=== PATIENT | female | born 1970 | race Caucasian/White ===

== ENCOUNTER 2018-01-03 09:40 | Observation (INO) ==
--- NOTE | 2018-01-03 10:22 | ED ---
HPI General Chief Complaint: Chest Pain Stated Complaint: CHEST PAIN Time Seen by Provider: 01/03/18 10:12 History of Present Illness HPI narrative: The patient was seen and examined in the presence of the nurse. This patient complains of chest pain. Is located in her left upper chest. Started yesterday. She has had it before and has periodically gotten at over the last month or 2. She has not mentioned it to her doctor or got any evaluation for it. [place] like an aching pressure. She is a hypertensive diabetic, Accu-Chek 221. No history of cardiac disease per her report. She also has some chronic upper back discomfort. No recent injury or neurologic complaint severity is moderate. No alleviating factors. No exacerbating factors. Paramedics brought her aunt and gave HER 2 sublingual nitro in route which she says helped her chest pain. Related Data Home Medications Medication Instructions Recorded Confirmed glimepiride 1 mg PO QAM 01/03/18 01/03/18 levothyroxine 25 mcg PO DAILY 01/03/18 01/03/18 metformin 500 mg PO BID 01/03/18 01/03/18 Allergies Allergy/AdvReac Type Severity Reaction Status Date / Time methylergonovine Allergy Arrhythmias Verified 01/03/18 09:50 [From Methergine] Review of Systems ROS: all other systems reviewed are negative [facility] Medical History Medical History Diabetes (Acute) H/O: hysterectomy (Acute) Hypertension (Acute) Surgical History Surgical History Hx of appendectomy (Acute) Social History Social History Substance History: No History of Abuse Smoking Status: Unknown if ever smoked How Often Do You Have a Drink Containing Alcohol: Never Immunization History Tetanus Immunization: >5 Years Hx Influenza Vaccine This Season: No Exam Narrative Exam Narrative: GENERAL: Well-nourished, well-developed patient in no apparent distress. SKIN: Focused skin assessment reveals no rash and nodules. Skin is Warm and dry. HEAD: Atraumatic. Normocephalic. EYES: Pupils equal and round. No scleral icterus. No injection or drainage. ENT: No nasal bleeding or discharge. Mucous membranes pink and moist. NECK: Trachea midline. No JVD. CARDIOVASCULAR: Regular rate and rhythm. No murmur appreciated. RESPIRATORY: No accessory muscle use. Clear to auscultation. Breath sounds equal bilaterally. GASTROINTESTINAL: Abdomen soft, non-tender, nondistended. Hepatic and splenic margins not palpable. MUSCULOSKELETAL: No obvious deformities. No clubbing. No cyanosis. No edema. NEUROLOGICAL: Awake and alert. No obvious cranial nerve deficits. Motor grossly within normal limits. Normal speech. PSYCHIATRIC: Appropriate mood and affect; insight and judgment normal. Course Initial Documented Vital Signs Temperature 98.2 F 01/03/18 09:53 Pulse Rate 99 H 01/03/18 09:53 Respiratory Rate 20 01/03/18 09:53 Blood Pressure 173/89 H 01/03/18 09:53 Pulse Oximetry 98 01/03/18 09:53 Last Documented Vital Signs Temperature 98.2 F 01/03/18 09:53 Pulse Rate 80 01/03/18 11:47 Respiratory Rate 18 01/03/18 11:47 Blood Pressure 153/73 H 01/03/18 11:47 Pulse Oximetry 97 01/03/18 11:47 Medical Decision Making MDM Narrative Medical decision making narrative: IV placed and labs sent. I gave her aspirin. EKG does not show STEMI changes Chest x-ray is normal and cardiac enzymes negative. She is a bit hyperglycemic and a bit hypertensive. She has multiple risk factors for CAD. She will be a telemetry observation to the medical residents. She also has several other complaints with back and side pain etc. I reviewed with the residents Medical Screen Exam Complete: Yes Emergency Medical Condition: Yes Differential Diagnosis Differential Diagnosis: Differential diagnosis includes SC, angina, pericarditis , pleurisy, GERD, anxiety. Medical Records Medical records reviewed: Yes I reviewed the patient's medical records. Lab Data Lab results reviewed: Yes I reviewed the patient's lab results. Lab results narrative: Cardiac enzymes are normal. General labs as below. Result diagrams: 01/03/18 09:52 01/03/18 09:52 Lab Results 01/03/18 01/03/18 Range/Units 09:52 09:52 WBC 7.0 (4.0-11.0) th/mm3 RBC 5.04 (4.00-5.30) mil/mm3 Hgb 14.5 (11.6-15.3) gm/dL Hct 42.3 (35.0-46.0) % MCV 83.9 (80.0-100.0) fL MCH 28.7 (27.0-34.0) pg MCHC 34.2 (32.0-36.0) % RDW 13.6 (11.6-17.2) % Plt Count 274 (150-450) th/mm3 MPV 6.8 L (7.0-11.0) fL Neut % (Auto) 41.5 (16.0-70.0) % Lymph % (Auto) 49.6 H (9.0-44.0) % [place] % (Auto) 6.5 (0.0-8.0) % Eos % (Auto) 1.9 (0.0-4.0) % Baso % (Auto) 0.5 (0.0-2.0) % Neut # (Auto) 2.9 (1.8-7.7) th/mm3 Lymph # (Auto) 3.5 (1.0-4.8) th/mm3 [place] # (Auto) 0.5 (0.0-0.9) th/mm3 Eos # (Auto) 0.1 (0.0-0.4) th/mm3 Baso # (Auto) 0.0 (0.0-0.2) th/mm3 WBC Differential . Differential Comment Auto diff final Sodium 140 (136-145) meq/L Potassium 3.8 (3.5-5.1) meq/L Chloride 103 (98-107) meq/L Carbon Dioxide 23.0 (21.0-32.0) meq/L Anion Gap 14 (5-15) meq/L BUN 11 (7-18) mg/dL Creatinine 0.93 (0.50-1.00) mg/dL Estimated GFR 65 L (>89) mL/min Random Glucose 242 H (74-106) mg/dL Calcium 8.7 (8.5-10.1) mg/dL Total Bilirubin 0.3 (0.2-1.0) mg/dL AST 29 (15-37) U/L ALT 57 H (10-53) U/L Alkaline Phosphatase 97 (45-117) U/L Total Creatine Kinase 86 (26-192) U/L Troponin I Less than 0.02 L (0.02-0.05) ng/mL Total Protein 8.1 (6.4-8.2) g/dL Albumin 3.8 (3.4-5.0) g/dL Imaging Data Attestation: I personally reviewed and interpreted this imaging study as follows : My impression: Chest x-ray is normal Radiologist's impression: Chest X-Ray 01/03/18 10:13 CONCLUSION: The lungs are clear. ECG Data EKG Prior to Arrival: No Attestation: I personally reviewed and interpreted this ECG as follows: Prior ECG tracings: not available for review Interpretation: Patient has a sinus rhythm at 80. There are no ST elevations. Her CT intervals and axis are normal. Discharge Plan Discharge Disposition Patient Disposition: 30 Still Patient Discharge Details Diagnosis: Chest pain in adult Physicians Team ED Provider: Luis Enrique Mata Primary Care Provider: Primary Care Thelma Feliciano Attending Provider: Hong Vasquez Discharge Interventions Interventions: Vital Signs Last Done: 01/03/18 10:04 Status ED Status: Admitted Observation Patient
--- NOTE | 2018-01-03 10:33 | XR ---
EXAM DATE: 01/03/2018 10:30 AM EDT AGE/SEX: 47 years / Female INDICATIONS: Left chest and bilateral shoulder pain. CLINICAL DATA: This is the patient's initial encounter. Patient reports that signs and symptoms have been present for 2 days and indicates a pain score of 7/10. MEDICAL/SURGICAL HISTORY: None. None. COMPARISON: No prior exams available for comparison. FINDINGS: A single AP view of the chest demonstrates the lungs to be symmetrically aerated without evidence of mass, infiltrate or effusion. No evidence of pneumothorax. The cardiomediastinal contours are unrema rkable. Osseous structures are intact. CONCLUSION: The lungs are clear. Electronically signed by: Tristan Berrios MD 01/03/2018 10:31 AM EDT
[2018-01-03 10:45] LABS: Baso % (Auto) 0.5 % (0.0-2.0); Eos # (Auto) 0.1 th/mm3 (0.0-0.4); Eos % (Auto) 1.9 % (0.0-4.0); Hematocrit 42.3 % (35.0-46.0); Hemoglobin 14.5 gm/dL (11.6-15.3); Lymph # (Auto) 3.5 th/mm3 (1.0-4.8); Lymph % (Auto) 49.6 % (9.0-44.0); Mean Corpuscular HGB Conc 34.2 % (32.0-36.0); Mean Corpuscular Hemoglobin 28.7 pg (27.0-34.0); Mean Corpuscular Volume 83.9 fL (80.0-100.0); Mean Platelet Volume 6.8 fL (7.0-11.0); Mono # (Auto) 0.5 th/mm3 (0.0-0.9); Mono % (Auto) 6.5 % (0.0-8.0); Neut # (Auto) 2.9 th/mm3 (1.8-7.7); Neut % (Auto) 41.5 % (16.0-70.0); Platelet Count 274 th/mm3 (150-450); Red Blood Count 5.04 mil/mm3 (4.00-5.30); Red Cell Distribution Width 13.6 % (11.6-17.2)
[2018-01-03 11:24] LABS: Alanine Aminotransferase 57 U/L (10-53); Albumin 3.8 g/dL (3.4-5.0); Alkaline Phosphatase 97 U/L (45-117); Anion Gap 14 meq/L (5-15); Aspartate Aminotransferase 29 U/L (15-37); Blood Urea Nitrogen 11 mg/dL (7-18); Calcium 8.7 mg/dL (8.5-10.1); Chloride 103 meq/L (98-107); Glomerular Filtration Rate 65 mL/min (>89); Glucose,Random 242 mg/dL (74-106); Sodium 140 meq/L (136-145); Total Protein 8.1 g/dL (6.4-8.2)
[2018-01-03 11:29] LABS: Creatine Kinase 86 U/L (26-192); Potassium 3.8 meq/L (3.5-5.1)
[2018-01-03] MEDS ORDERED: Iohexol 350 MG/ML 100 ML Vial (for Cath Lab) IV.SIG ONE (11:44)
--- NOTE | 2018-01-03 12:07 | P.HPFP ---
History of Present Illness Primary Care Physician: No Primary Care Physician <Hong Vasquez - 01/03/18 22:32> No Primary Care Physician <Chon Espinal III - 01/03/18 12:07> Chief Complaint: chest pain <Chon Espinal III - 01/03/18 12:07> History of Present Illness: Ms Schuster is a 47 YO female followed by Dr Spring with hypothyroidism and DM type 2 diagnosed approx 4 months ago who presents with chest pains since 3:30 yesterday afternoon. Pt was off from work yesterday and did nothing too strenuous. She did laundry and a job interview but nothing stressful or out of the ordinary. Pain described as constant and aching in nature in the left upper chest with radiation to her mid-back, her right jaw and at times to her right arm. There has been a little nausea but no emesis. Pt has had CP in past, off and on, achy in left upper chest. Today pain is 7/10 after administration of sublingual nitroglycerin, but was 10/10 yesterday, last night and this morning. Pt had an appt scheduled with her DM doctor, Dr Amos this morning, and was going to wait for that. When she saw Dr Amos this morning she had high BP and was sent to the ED for further management. She took motrin last night which was not helpful and did not alleviate her chest pain. She measures her blood sugar each morning and it has averaged 128-155 fasting. Pt takes levothyroxine daily, metformin BID and glimepiride daily but cannot recall the doses. Pt denies fever, chills, V/D, constipation, blood in stool, dysuria, abdominal or leg pain. FamHx: Mother - alive; nothing noted Father KS and CVA - alive No etoh, tobacco, drugs <Chon Espinal III - 01/03/18 17:12> - Diagnosis (1) Chest pain in adult <Hong Vasquez - 01/03/18 22:32> (1) Chest pain in adult <Chon Espinal III - 01/03/18 18:13> PMFSH - History History Provided By: Patient <Chon Espinal III 01/03/18 12:07> - Medical History Medical History: Medical History (Last Reviewed 01/03/18 @ 14:15 by Milagros Rain) Diabetes H/O: hysterectomy Hypertension <Hong Vasquez 01/03/18 22:32> Medical History (Last Reviewed 01/03/18 @ 14:15 by Milagros Rain) Diabetes H/O: hysterectomy Hypertension <Chon Espinal III 01/03/18 17:12> - Surgical History Surgical History: Surgical History (Last Reviewed 01/03/18 @ 14:15 by Milagros Rain) Hx of appendectomy <PedroHong 01/03/18 22:32> Surgical History (Last Reviewed 01/03/18 @ 14:15 by Milagros Rain) Hx of appendectomy <Chon Espinal III 01/03/18 17:12> - Tobacco History Smoking Status: Unknown if ever smoked <Chon Espinal III 01/03/18 12:07> - Alcohol History How Often Do You Have a Drink Containing Alcohol: Never <Chon Espinal III 01/03/18 12:07> - Substance Use History Substance History: No History of Abuse <Chon Espinal III 01/03/18 12:07> - Immunization History Tetanus Immunization: >5 Years <Chon Espinal III 01/03/18 12:07> Hx Influenza Vaccine This Season: No <Chon Espinal III 01/03/18 12:07> Medications and Allergies Allergies Allergy/AdvReac Type Severity Reaction Status Date / Time methylergonovine Allergy Arrhythmias Verified 01/03/18 09:50 [From Methergine] <PedroHong Limon Elicia 01/03/18 22:32> Home Medications Medication Instructions Recorded Confirmed Type glimepiride 1 mg PO QAM 01/03/18 01/03/18 History levothyroxine 25 mcg PO DAILY 01/03/18 01/03/18 History metformin 500 mg PO BID 01/03/18 01/03/18 History <Hong Vasquez 01/03/18 22:32> Active Medications: Active Medications Acetaminophen (Tylenol) 650 mg PO Q4H PRN PRN Reason: Temp > 100.4 Last Admin: 01/03/18 17:56 Dose: 650 mg Atorvastatin Calcium (Lipitor) 80 mg PO HS BENJI Last Admin: 01/03/18 21:30 Dose: 80 mg Dextrose (D50w Vial) 50 ml IV.PUSH UNSCH PRN PRN Reason: PER HYPOGLYCEMIA PROTOCOL Glucagon (Glucagon Inj) 1 mg OTHER UNSCH PRN PRN Reason: for Hypoglycemia Protocol Sodium Chloride (Ns Inj) 1,000 mls @ 115 mls/hr IV.CONT .Q8H42M [facility] [place] Last Admin: 01/03/18 14:32 Dose: 115 mls/hr Insulin Aspart (Novolog Insulin Correctional Sugar Inj) 0 unit SQ ACHS AND 3AM BENJI; Protocol Last Admin: 01/03/18 21:29 Dose: Not Given Levothyroxine Sodium (Synthroid) 25 mcg PO DAILY@0600 [facility] [place] Metoprolol Tartrate (Lopressor) 25 mg PO DAILY [facility] [place] Last Admin: 01/03/18 14:32 Dose: 25 mg Morphine Sulfate (Morphine Inj) 2 mg IV.PUSH Q3H PRN PRN Reason: CHEST PAIN Nitroglycerin (Nitro-Bid 2% Oint) 1 inch TOPICAL Q6HR PRN PRN Reason: CHEST PAIN Last Admin: 01/03/18 17:49 Dose: 1 inch Ondansetron HCl (Zofran Inj) 4 mg IV.PUSH Q6H PRN PRN Reason: NAUSEA OR VOMITING Senna/Docusate Sodium (Genesis-Colace) 1 tab PO BID [facility] [place] Last Admin: 01/03/18 21:31 Dose: Not Given Sodium Chloride (Ns Inj) 2 ml IV.FLUSH BID [facility] [place] Last Admin: 01/03/18 21:31 Dose: 2 ml Sodium Chloride (Ns Inj) 2 ml IV.FLUSH UNSCH PRN PRN Reason: FLUSH AFTER USING IV ACCESS <Hong Vasquez - 01/03/18 22:32> Active Medications Sodium Chloride (Ns Flush) 2 ml IV.FLUSH UNSCH PRN PRN Reason: FLUSH AFTER USING IV ACCESS <Chon Espinal III H - 01/03/18 12:07> Exam Vital signs: Vital Signs 01/03/18 09:53 01/03/18 10:04 01/03/18 10:13 Temperature 98.2 F Pulse Rate 99 H 88 Respiratory Rate 20 20 Blood Pressure 173/89 H 172/93 H Pulse Oximetry 98 97 97 01/03/18 10:22 01/03/18 11:47 09/18/18 12:48 Temperature 98.2 F Pulse Rate 80 74 Respiratory Rate 18 16 Blood Pressure 153/73 H 124/77 Pulse Oximetry 97 97 97 01/03/18 16:29 01/03/18 17:00 01/03/18 19:00 Temperature 98.0 F Pulse Rate 72 82 Respiratory Rate 18 Blood Pressure 128/72 Pulse Oximetry 97 97 01/03/18 20:00 Temperature 98.1 F Pulse Rate 78 Respiratory Rate 16 Blood Pressure 130/88 Pulse Oximetry 97 Intake & Output 01/03/18 01/03/18 01/04/18 06:59 18:59 06:59 Intake Total 120 / 120 Balance 120 / 120 Weight 73.482 kg Intake: Oral 120 / 120 Other: Date of Last Bowel Movement 01/02/18 01/02/18 Weight On Admission 73.482 kg <Hong Vasquez - 01/03/18 22:32> Vital Signs 01/03/18 09:53 01/03/18 10:04 01/03/18 10:13 Temperature 98.2 F Pulse Rate 99 H 88 Respiratory Rate 20 20 Blood Pressure 173/89 H 172/93 H Pulse Oximetry 98 97 97 01/03/18 10:22 01/03/18 11:47 Temperature Pulse Rate 80 Respiratory Rate 18 Blood Pressure 153/73 H Pulse Oximetry 97 97 Intake & Output 01/02/18 01/03/18 01/03/18 18:59 06:59 18:59 Weight 74.918 kg <Teddy CAMACHOChon - 01/03/18 12:07> Narrative: GENERAL: WDWN female appearing her stated age lying in bed in mild-moderate discomfort lying on her side. SKIN: Warm and dry. No lesion or rash. HEAD: Normocephalic. Atraumatic. EYES: No scleral icterus. No injection or drainage. NECK: Supple, trachea midline. No JVD or lymphadenopathy. CARDIOVASCULAR: Regular rate and rhythm without murmurs, gallops, or rubs. Peripheral pulses intact. RESPIRATORY: Breath sounds equal bilaterally. No accessory muscle use. No increased WOB. GASTROINTESTINAL: Abdomen soft, non-tender, nondistended. +BS. MUSCULOSKELETAL: No cyanosis, or edema. Moves all extremities spontaneously. BACK: Nontender without obvious deformity. No CVA tenderness. <Chon Espinal III - 01/03/18 18:23> Results - Labs Result diagrams: 01/03/18 09:52 01/03/18 09:52 <YoungHong L - 01/03/18 22:32> Abnormal lab results 01/03/18 01/03/18 01/03/18 Range/Units 09:52 09:52 13:40 MPV 6.8 L (7.0-11.0) fL Lymph % (Auto) 49.6 H (9.0-44.0) % APTT 23.1 L (24.3-30.1) sec Estimated GFR 65 L (>89) mL/min POC Glucose (68-110) mg/dl Random Glucose 242 H (74-106) mg/dL ALT 57 H (10-53) U/L Troponin I Less than 0.02 L (0.02-0.05) ng/mL Triglycerides (42-150) mg/dL Cholesterol (120-200) mg/dL HDL Cholesterol (40.0-60.0) mg/dL 01/03/18 01/03/18 01/03/18 Range/Units 18:03 18:42 18:42 MPV (7.0-11.0) fL Lymph % (Auto) (9.0-44.0) % APTT (24.3-30.1) sec Estimated GFR (>89) mL/min POC Glucose 186 H (68-110) mg/dl Random Glucose (74-106) mg/dL ALT (10-53) U/L Troponin I Less than 0.02 L (0.02-0.05) ng/mL Triglycerides 742 H (42-150) mg/dL Cholesterol 322 H (120-200) mg/dL HDL Cholesterol 35.6 L (40.0-60.0) mg/dL 01/03/18 Range/Units 21:28 MPV (7.0-11.0) fL Lymph % (Auto) (9.0-44.0) % APTT (24.3-30.1) sec Estimated GFR (>89) mL/min POC Glucose 114 H (68-110) mg/dl Random Glucose (74-106) mg/dL ALT (10-53) U/L Troponin I (0.02-0.05) ng/mL Triglycerides (42-150) mg/dL Cholesterol (120-200) mg/dL HDL Cholesterol (40.0-60.0) mg/dL Short CBC 01/03/18 Range/Units 09:52 WBC 7.0 (4.0-11.0) th/mm3 Hgb 14.5 (11.6-15.3) gm/dL Hct 42.3 (35.0-46.0) % Plt Count 274 (150-450) th/mm3 [facility] 01/03/18 09:52 Sodium 140 Potassium 3.8 Chloride 103 Carbon Dioxide 23.0 BUN 11 Creatinine 0.93 Calcium 8.7 Cardiac Enzymes 01/03/18 01/03/18 Range/Units 09:52 18:42 Total Creatine Kinase 86 61 (26-192) U/L Troponin I Less than 0.02 L Less than 0.02 L (0.02-0.05) ng/mL Liver Function 01/03/18 Range/Units 09:52 Total Bilirubin 0.3 (0.2-1.0) mg/dL AST 29 (15-37) U/L ALT 57 H (10-53) U/L Alkaline Phosphatase 97 (45-117) U/L Albumin 3.8 (3.4-5.0) g/dL <Young,Hong L - 01/03/18 22:32> Abnormal lab results 01/03/18 01/03/18 Range/Units 09:52 09:52 MPV 6.8 L (7.0-11.0) fL Lymph % (Auto) 49.6 H (9.0-44.0) % Estimated GFR 65 L (>89) mL/min Random Glucose 242 H (74-106) mg/dL ALT 57 H (10-53) U/L Troponin I Less than 0.02 L (0.02-0.05) ng/mL Short CBC 01/03/18 Range/Units 09:52 WBC 7.0 (4.0-11.0) th/mm3 Hgb 14.5 (11.6-15.3) gm/dL Hct 42.3 (35.0-46.0) % Plt Count 274 (150-450) th/mm3 [facility] 01/03/18 09:52 Sodium 140 Potassium 3.8 Chloride 103 Carbon Dioxide 23.0 BUN 11 Creatinine 0.93 Calcium 8.7 Cardiac Enzymes 01/03/18 Range/Units 09:52 Total Creatine Kinase 86 (26-192) U/L Troponin I Less than 0.02 L (0.02-0.05) ng/mL Liver Function 01/03/18 Range/Units 09:52 Total Bilirubin 0.3 (0.2-1.0) mg/dL AST 29 (15-37) U/L ALT 57 H (10-53) U/L Alkaline Phosphatase 97 (45-117) U/L Albumin 3.8 (3.4-5.0) g/dL <Chon Espinal III Elicia 01/03/18 12:07> - Imaging Impressions Chest X-Ray 01/03/18 10:13 CONCLUSION: The lungs are clear. <Hong Vasquez 01/03/18 22:32> Impressions Chest X-Ray 01/03/18 10:13 CONCLUSION: The lungs are clear. <Teddy CAMACHOChon Elicia 01/03/18 12:07> Caprini VTE Risk Assessment Caprini VTE Risk Assessment: No/Low Risk (score <= 1) <Teddy CAMACHOChon Elicia 18:23> Caprini Risk Assessment Model: Point Value = 1 Point Value = 2 Point Value = 3 Point Value = 5 Age 41-60 Minor surgery BMI > 25 kg/m2 Swollen legs Varicose veins or History of unexplained or recurrent spontaneous Oral contraceptives or hormone replacement Sepsis (< 1 month) Serious lung disease, including pneumonia (< 1 month) Abnormal pulmonary function Acute myocardial infarction Congestive heart failure (< 1 month) History of inflammatory bowel disease Medical patient at bed rest Age 61-74 Arthroscopic surgery Major open surgery (> 45 min) Laparoscopic surgery (> 45 min) Malignancy Confined to bed (> 72 hours) Immobilizing plaster cast Central venous access Age >= 75 History of VTE Family history of VTE Factor V Leiden Prothrombin [id number] Lupus anticoagulant Anticardiolipin antibodies Elevated serum homocysteine Heparin-induced thrombocytopenia Other congenital or acquired thrombophilia Stroke (< 1 month) Elective arthroplasty Hip, pelvis, or leg fracture Acute spinal cord injury (< 1 month) <Hong Vasquez 01/03/18 22:32> Prophylaxis Regimen: Total Risk Factor Score Risk Level Prophylaxis Regimen 0-1 Low Early ambulation 2 Moderate Order ONE of the following: *Sequential Compression Device (SCD) *Heparin 5000 units SQ BID 3-4 Higher Order ONE of the following medications: *Heparin 5000 units SQ TID *Enoxaparin/Lovenox 40 mg SQ daily (WT < 150 kg, CrCl > 30 mL/min) *Enoxaparin/Lovenox 30 mg SQ daily (WT < 150 kg, CrCl > 10-29 mL/min) *Enoxaparin/Lovenox 30 mg SQ BID (WT < 150 kg, CrCl > 30 mL/min) AND/OR *Sequential Compression Device (SCD) 5 or more Highest Order ONE of the following medications: *Heparin 5000 units SQ TID (Preferred with Epidurals) *Enoxaparin/Lovenox 40 mg SQ daily (WT < 150 kg, CrCl > 30 mL/min) *Enoxaparin/Lovenox 30 mg SQ daily (WT < 150 kg, CrCl > 10-29 mL/min) *Enoxaparin/Lovenox 30 mg SQ BID (WT < 150 kg, CrCl > 30 mL/min) AND *Sequential Compression Device (SCD) <Hong Vasquez - 01/03/18 22:32> Assessment and Plan - Assessment (1) Chest pain in adult Code(s): R07.9 - Chest pain, unspecified Status: Acute <Hong Vasquez - 01/03/18 22:32> (1) Chest pain in adult Code(s): R07.9 - Chest pain, unspecified Status: Acute <Chon Espinal III - 01/03/18 18:13> - Assessment and Plan 47 YO female with PMHx hypothyroid and DM presents with atypical chest pain and EKG showing NSR and Troponin 0.02, will trend and r/o ACS. Pt taken to cath lab tech by Dr Rich with no lesion noted in coronary arteries. Pt will be kept in observation overnight due to continued CP. 1. Atypical chest pain -Morphine 2mg IV q3h CP -Oxygen as needed -Nitro-Bid 2% topical q6h PRN CP -Aspirin 160 mg given in ED -Metoprolol 50 mg PO daily -High dose atorvastatin 80 mg HS -Heparin gtt with loading dose; discontinued after cath lab tech -Cardiology consult -Plavix 300 mg loading dose 2.DM -Hold Metformin -Hold glipizide -Low SSI 3. Hypothyroid -Continue home dose levothyroxine 25 mcg PO daily 4. FEN/GI/PPx: -NPO for procedure; heart healthy diet after -Electrolytes wnl -MIVF at 115 mls/hr -GI: none indicated -PPx: Heparin as above -Tylenol 650 mg PRN -Zofran 4 mg IV for nausea <Chon Espinal III - 01/03/18 18:23> - Attending Attestation The exam, history, and the medical decision-making described in the above note were completed with the assistance of the resident physician. I reviewed and agree with the findings presented. I attest that I had a [id number] encounter with the patient on the same day, and personally performed and documented my assessment and findings in the medical record. Patient seen and examined this afternoon with residents/medical student. Patient with diabetes and hypertension presented with concerning symptoms including pressure like chest pain that radiated to jaw and right arm. Happened more with emotional stress, not so much with physical exertion. Was unrelenting which is unusual for cardiac pain. Does not report a personal history of cardiac disease, but there is disease in the family. [place] score 2. Patient started on heparin drip for potential unstable angina. EKG and troponin reassuring. She was taken to the cath lab tech early which was also reassuring. Will reevaluate tomorrow to see how she is doing, along with counseling on risk factor reduction and follow up on cholesterol levels. <Hong Vasquez - 01/03/18 22:32>
[2018-01-03] MEDS ORDERED: Morphine Sulfate Inj 2 MG/ML Vial IV.PUSH PRN (12:30)
[2018-01-03] MEDS ORDERED: Heparin Drip 25,000 UNIT/250 ML BAG IV.CONT PRN (12:33)
[2018-01-03] MEDS ORDERED: Heparin 10,000 UNITS/10 ML Vial (for IV use) IV.PUSH STA (13:28)
[2018-01-03 14:21] LABS: Activated Partial Thrombo Time 23.1 sec (24.3-30.1); INR 1.1 Ratio; Prothrombin Time 11.5 sec (9.8-11.6)
[2018-01-03] MEDS: Sod Chloride 0.9% Inj 1,000 ML IV.CONT SCH (14:32)
[2018-01-03] MEDS: Metoprolol Tartrate 25 MG Tablet PO SCH (14:32)
[2018-01-03] MEDS ORDERED: Heparin/NS PF Inj 1,000 ML ONE (15:06)
[2018-01-03] MEDS ORDERED: fentaNYL Citrate Inj 100 MCG/2 ML Ampul ONE (15:07)
--- NOTE | 2018-01-03 16:07 | CATHPROC ---
[employer] HIS Report Study Information Study Number Admission Scheduled Start Study Start [id number] Jan 03 2018 11:43AM 01/03/2018 Jan 03 2018 3:04PM [facility] Electrophysiology Study Admit Source Facility Department Emergency department [facility] - Fitter / Welder Physician and Clinical Staff Initial Cora Monge Polish Maker Kavin Saavedra,ERUM Polish Maker Aiden Grigsby RN Recorder Asha Byrne,RT(R) Scrub Jessy Shah,FINN TECH2 Procedures Performed Procedure Location (Site) Vessel Name Angiogram LV LV Ventricle Coronary Angiograms LCA Left Coronary Coronary Angiograms RCA Right Coronary L Heart Cath Equipment Time Alloy Weigher Description Size Mfg Part Number Used/Scraped TRANSDUCER, TRNexis VisionAVE [id number] 15:05 Well[employer] HERNANDEZ * Used W/STOCKCOCK *[id number] 15:54 [employer]Yzha[employer] MEDICAL VASCADE, FR5 CLOSURE SYSTEM FR 5 Used *[id number] [id number] *[id number] [id number] *[id number] [id number] *[id number] 15:05 [employer] [place] BLANKET,WARM AIR CCL * Used *[id number] 15:05 [employer] [place] PACK, CCL CUSTOM * Used *[id number] 15:05 [employer] PACER PEN, SKIN DUAL W/ RULER * Used *[id number] 15:05 [employer] WIRE, 3MMJ .035 180CM 180CM Used *[id number] PROBE COVER, STERILE [id number] 15:05 MDCapsule MEDICAL * Used ULTRASOUND W/ GEL *[id number] 15:05 NAMIC MANIFOLD, 4 PORT * Used *[id number] 15:05 NAMIC TUBING, HIGH PRESSURE 48" 48" Used *[id number] 15:05 NYCOMED OMNIPAQUE, 350 MG, 150ML 150ML [id number] Used 15:43 NYCOMED OMNIPAQUE, 350 MG, 50ML 50ML [id number] Used [id number] 15:05 TERUMO MEDICAL SHEATH, FR5 TERUMO (10CM) FR 5 Used *[id number] History: Current Medications Medication Dosage/Unit Route Frequency Last Date/Time Taken PLAVIX History: Allergies Allergy Reaction methylergonovine Arrhythmias History: Risk Factors Family History of Hypertension Dyslipidemia Previous TX Previous Heart Failure Premature CAD Yes Yes Yes No No Prior Valve Prior PCI Prior CABG Surgery No No No Cerebrovascular Peripheral Artery Chronic Lung On Dialysis Diabetes Disease Disease Disease No No No No Yes Labs Hgb (g/dl) Hct (%) WBC (l/cumm) Platelets (thousands) 11.60-17.00 35.00-51.00 4.00-11.00 150.00-450.00 14.5 42.3 7 274 Glucose (mg/dl) BUN (mg/dl) Creatinine (mg/dl) BUN:Creatinine (1:x) 74.00-106.00 7.00-18.00 0.50-1.30 10.00-20.00 242 11 0.9 12.2 Na (meq/l) K (meq/l) 136.00-145.00 3.50-5.10 140 3.8 INR (PTT:PT) 0.90-1.10 1.1 Troponin I (ng/ml) CPK (u/l) CPK-MB (ng/ML) 0.02-0.05 26.00-308.00 0.50-3.60 0.02 86 Not Drawn Medication Medication Total Dose (Bolus/Oral) Medication Total Dosage/Unit 1% XYLOCAINE 20 mL FENTANYL 100 mcg VERSED 4 mg Medications (Bolus/Oral) Medication Time Given Dosage/Unit Administered By Reason VERSED 01/03/2018 3:17:18 PM 1 mg Keri, Kavin 1 mg VERSED given in lab by Kavin Saavedra RN in Right Forearm via Peripheral IV. Ordered by Cora Rich. FENTANYL 01/03/2018 3:18:34 PM 50 mcg Keri, Kavin 50 mcg FENTANYL given in lab by Kavin Saavedra RN in Right Forearm via Peripheral IV. Ordered by Cora Dickey. VERSED 01/03/2018 3:32:44 PM 1 mg Aiden Grigsby 1 mg VERSED given in lab by Aiden Grigsby RN in Right Forearm via Peripheral IV. Ordered by Cora Rich. FENTANYL 01/03/2018 3:32:51 PM 25 mcg Keri, Kavin 25 mcg FENTANYL given in lab by Kavin Saavedra RN in Right Forearm via Peripheral IV. Ordered by Cora Dickey. VERSED 01/03/2018 3:37:05 PM 1 mg Ferlitto, Aiden 1 mg VERSED given in lab by Aiden Grigsby RN in Right Forearm via Peripheral IV. Ordered by Cora Rich. FENTANYL 01/03/2018 3:37:13 PM 25 mcg Aiden Grigsby 25 mcg FENTANYL given in lab by Aiden Grigsby RN in Right Forearm via Peripheral IV. Ordered by Cora Huang. 1% XYLOCAINE 01/03/2018 3:38:30 PM 20 mL Cora Rich 20 mL 1% XYLOCAINE given in lab by Cora Rich in Right Groin via Subcutaneous. VERSED 01/03/2018 3:51:10 PM 1 mg SkyleroTeaey 1 mg VERSED given in lab by Aiden Grigsby RN in Right Forearm via Peripheral IV. Ordered by Cora Rich. Medication (Drip) Medication Time Given Dosage/Unit Concentration/Unit Diluent (ml) Solution IV Solutions 01/03/2018 3:04:54 PM 50 mL (IV) NaCl .9 IV Solutions given in lab by Kavin Saavedra RN in Right Forearm via Peripheral IV. Pump/Drip Flow usin g NaCl .9. Initial Case Assessment Cardiovascular Chest Pain 0 Edema Present Skin color Skin None Normal Warm Dry Circulatory - Right Pulses Dorsalis Pedis Femoral 1 2 Scale (0,1,2,3,4,d) Circulatory - Left Pulses Dorsalis Pedis Femoral 1 2 Scale (0,1,2,3,4,d) Neurological State Oriented to time-place- Alert Moves all extremities person Chronological Log Time Study Chronological Log 15:00:22 Patient arrived via Bed. 15:04:26 Patient Name, D.O.B, / Armband Verified By R.N. 15:04:27 Consent signed by the physician and the patient and verified by the Fitter / Welder staff. 15:04:27 Pre-op and post- op instructions given; patient acknowledges understanding of instructions. 15:04:35 Presedation assessment performed by Fitter / Welder RN. 15:04:44 Patient has been NPO for More than 6Hrs. 15:04:44 Skin Breakdown- none per pt 15:04:51 Patient Warmer Placed on the Table. 15:04:52 Liliana Prominences Protected 15:04:53 A # 20 IV was noted in the Forearm (right). Grade = 0 15:04:54 IV Solutions given in lab by Kavin Saavedra RN in Right Forearm via Peripheral IV. Pump/Drip Flow using NaCl .9. 15:04:55 History and physical on the chart or being dictated. Assessment: Initial Case, Chest Pain=0, Edema=None, Color=Normal, Skin = Warm, Dry Right Pulses: Chirag Ped=1, Femoral=2 15:04:57 Left Pulses: Chirag Ped=1, Femoral=2 Neurological: State=Alert, Ox3, [place] 15:12:11 Reference ECG taken Vitals capture started with the following parameters, Patient=Adult, Interval=5 min, Initial Pr zaurqe=148 mmHg, 15:12:25 Deflation Rate=5 mmHg, Cuff placed on Left Arm 15:13:08 HR=83 bpm, QOZN=059/102 mmhg, SpO2=96 %, Resp=19 B/min 15:15:26 Bilateral groins prepped with 2% chlorhexidine, and draped after a 3 minute waiting time. 15:17:18 1 mg VERSED given in lab by Kavin Saavedra RN in Right Forearm via Peripheral IV. Ordered by Cora Rich. 15:18:09 HR=89 bpm, CXCJ=036/93 mmhg, SpO2=88.0 %, Resp=11 B/min 15:18:34 50 mcg FENTANYL given in lab by Kavin Saavedra RN in Right Forearm via Peripheral IV. Ordere d by Cora Rich. 15:21:21 MD paged 15:23:00 Pressure channel 1 zeroed. 15:23:06 HR=81 bpm, WXKV=734/96 mmhg, SpO2=96 %, Resp=12 B/min 15:28:07 HR=79 bpm, WXFE=700/95 mmhg, SpO2=96 %, Resp=12 B/min 15:31:26 MD arrived. 15:32:44 1 mg VERSED given in lab by Aiden Grigsby RN in Right Forearm via Peripheral IV. Ordered by Cora Rich. 15:32:51 25 mcg FENTANYL given in lab by Kavin Saavedra RN in Right Forearm via Peripheral IV. Ordere d by Cora Rich. 15:33:11 HR=79 bpm, SZAS=598/92 mmhg, SpO2=96 %, Resp=13 B/min 15:37:05 1 mg VERSED given in lab by Aiden Grigsby RN in Right Forearm via Peripheral IV. Ordered by Cora Rich. 15:37:13 25 mcg FENTANYL given in lab by Aiden Grigsby RN in Right Forearm via Peripheral IV. Orde red by Cora Rich. Time Out. Correct patient, correct procedure, correct physician, labs, allergies, and equipment verified with rd lab technician 15:37:28 team present. Fire risk assesment completed (see hard stop sheet for coding). Time Out Conc urred by MD and individual staff in procedure. 15:38:07 Case Start 15:38:08 HR=84 bpm, PKYH=675/98 mmhg, SpO2=94 %, Resp=10 B/min 15:38:30 20 mL 1% XYLOCAINE given in lab by Cora Rich in Right Groin via Subcutaneous. 15:39:19 Access site was Right Femoral Artery via ultrasound. 15:39:34 A SHEATH, FR5 TERUMO (10CM) FR 5 was advanced into the Fem Art (right) using the Percutaneo us technique. A PIGTAIL ANG. INFINITI CATHETER FR 5 was advanced over a wire. OMNIPAQUE, 350 MG, 150ML 150ML was used 15:40:43 for injections. Recorded Pressure: LV, HR=76, Condition=Condition 1 15:41:49 (Left Ventricle) LV 127/15/16 15:43:07 HR=80 bpm, QSNH=474/92 mmhg, SpO2=95 %, Resp=9 B/min 15:43:20 The LV was injected at 10 cc/sec for a total of 30. OMNIPAQUE, 350 MG, 50ML 50ML used. Recorded Pressure: LV, Ao, HR=84, Condition=Condition 1 15:44:17 (Left Ventricle) LV 129/15/16, (Aorta) Ao 127/84/105 15:44:36 Catheter was removed A JL 4.0 INFINITI CATHETER FR 5 was advanced over a wire. OMNIPAQUE, 350 MG, 150ML 150ML was us ed for 15:45:07 injections. Recorded Pressure: Ao, HR=82, Condition=Condition 1 15:46:52 (Aorta) Ao 128/85/105 15:47:31 The LCA was injected and visualized at various angles. OMNIPAQUE, 350 MG, 150ML 150ML used . 15:48:08 HR=78 bpm, GPJK=324/79 mmhg, SpO2=95.0 %, Resp=11 B/min 15:49:05 Catheter was removed A AR MOD INFINITI CATHETER FR 5 was advanced over a wire. OMNIPAQUE, 350 MG, 150ML 150ML was us ed for 15:49:22 injections. 15:50:56 The RCA was injected and visualized at various angles. OMNIPAQUE, 350 MG, 150ML 150ML used . 15:51:10 1 mg VERSED given in lab by Aiden Grigsby, ERUM in Right Forearm via Peripheral IV. Ordered by Cora Rich. 15:51:43 Catheter was removed 15:52:06 Case End (Physician broke scrub) 15:53:09 HR=84 bpm, TVKW=256/77 mmhg, SpO2=96 %, Resp=11 B/min 15:54:30 An injection in the Fem Art (right) was made through the SHEATH, FR5 TERUMO (10CM) FR 5. 15:58:10 HR=80 bpm, ZVZH=676/75 mmhg, SpO2=96 %, Resp=14 B/min 16:03:07 HR=78 bpm, NWTK=698/83 mmhg, SpO2=96 %, Resp=21 B/min 16:03:33 VASCADE, FR5 CLOSURE SYSTEM FR 5 placement in the Fem Art (right) 16:03:38 Sterile dressing applied to site 16:03:39 No case complications noted. 16:03:40 Cine recording checked. 16:03:42 Holding Area notified. 16:03:47 Implantable Device card placed in patient's chart. 16:03:48 Bedside Report will be given. 16:03:52 A Left Heart Cath was performed. 16:10:53 Patient moved to [facility] End Study - Contrast Media Used In Study Contrast Total Opened (mL) Total Used (mL) Total Wasted (mL) Omnipaque 200 80 120 End Study - Maximum Contrast Load Max Contrast Load (mL) 416.2 End Study - Radiation Exposure Fluoro Time (minutes) 1.4 End Study - Patient Disposition Complications Transferred To Interventional Outcome No Outpatient Bed No attempt made
--- NOTE | 2018-01-03 16:09 | P.CONCA ---
History of Present Illness Service: Cardiology Consult date: 01/03/18 Requesting Physician: Chon Espinal III Reason for Consult: Chest pain Primary Care Provider: No Primary Care Physician Chief Complaint: chest pain History of Present Illness: This very pleasant 47-year-old female who presented to the emergency department with complaints of chest pain that was greatly reduced with nitro sublingual. She has a history of diabetes mellitus, obesity and hypertension. She was diagnosed with diabetes 4 months ago. She states that the pain started around 5:30pm yesterday so she took some Motrin and sleep medication and went to bed. She woke up this morning with the same pain that radiated from her mid chest through to her upper back. She was seen this morning by Dr. Mcmahan and had hypertension and was sent to the emergency department. She denies any history of smoking, drug or alcohol use. She does complain of chest discomfort that continues to radiate through to her back. She denies any shortness of breath, dizziness, palpitations or edema. Family is at bedside. Review of Systems All other systems reviewed negative except as stated in HPI PMFSH - History History Provided By: Patient - Medical History Medical History: Medical History (Last Reviewed 01/03/18 @ 14:15 by Milagros Rain) Diabetes H/O: hysterectomy Hypertension - Surgical History Surgical History: Surgical History (Last Reviewed 01/03/18 @ 14:15 by Milagros Rain) Hx of appendectomy - Tobacco History Second Hand Smoke Exposure: No Smoking Status: Never smoker - Alcohol History How Often Do You Have a Drink Containing Alcohol: Never - Substance Use History Substance History: No History of Abuse - Travel History Recent Travel in the [place] Within the Last 8 Weeks: No Recent Travel Out of the Country Within the Last 8 Weeks: No - Immunization History Tetanus Immunization: >5 Years Hx Influenza Vaccine This Season: No Medications and Allergies Allergies Allergy/AdvReac Type Severity Reaction Status Date / Time methylergonovine Allergy Arrhythmias Verified 01/03/18 09:50 [From Methergine] Home Medications Medication Instructions Recorded Confirmed Type glimepiride 1 mg PO QAM 01/03/18 01/03/18 History levothyroxine 25 mcg PO DAILY 01/03/18 01/03/18 History metformin 500 mg PO BID 01/03/18 01/03/18 History Active Medications: Active Medications Acetaminophen (Tylenol) 650 mg PO Q4H PRN PRN Reason: Temp > 100.4 Atorvastatin Calcium (Lipitor) 80 mg PO HS [facility] Heparin Sodium/Dextrose (Heparin/D5w 25,000 U/250 Ml) 25,000 unit in 250 mls @ 9 mls/hr IV.CONT TITRATE PRN; Protocol PRN Reason: Per Protocol Sodium Chloride (Ns Inj) 1,000 mls @ 115 mls/hr IV.CONT .Q8H42M [facility] Last Admin: 01/03/18 14:32 Dose: 115 mls/hr Levothyroxine Sodium (Synthroid) 25 mcg PO DAILY@0600 [facility] Metoprolol Tartrate (Lopressor) 25 mg PO DAILY [facility] Last Admin: 01/03/18 14:32 Dose: 25 mg Morphine Sulfate (Morphine Inj) 2 mg IV.PUSH Q3H PRN PRN Reason: CHEST PAIN Nitroglycerin (Nitro-Bid 2% Oint) 1 inch TOPICAL Q6HR PRN PRN Reason: CHEST PAIN Ondansetron HCl (Zofran Inj) 4 mg IV.PUSH Q6H PRN PRN Reason: NAUSEA OR VOMITING Senna/Docusate Sodium (Genesis-Colace) 1 tab PO BID [facility] Sodium Chloride (Ns Inj) 2 ml IV.FLUSH BID [facility] Sodium Chloride (Ns Inj) 2 ml IV.FLUSH UNSCH PRN PRN Reason: FLUSH AFTER USING IV ACCESS Exam Vital signs: Vital Signs 01/03/18 09:53 01/03/18 10:04 01/03/18 10:13 Temperature 98.2 F Pulse Rate 99 H 88 Respiratory Rate 20 20 Blood Pressure 173/89 H 172/93 H Pulse Oximetry 98 97 97 01/03/18 10:22 01/03/18 11:47 01/03/18 12:48 Temperature 98.2 F Pulse Rate 80 74 Respiratory Rate 18 16 Blood Pressure 153/73 H 124/77 Pulse Oximetry 97 97 97 Intake & Output 01/02/18 01/03/18 01/03/18 18:59 06:59 18:59 Weight 73.482 kg Other: Weight On Admission 73.482 kg - Constitutional no acute distress - Routine HEENT Exam Head: Present: normocephalic Eye: Present: EOMI ENT: Present: mucous membranes moist - Routine Neck Exam Present: supple, full ROM - Routine Respiratory Exam Present: CTA bilaterally - Routine Cardiovascular Exam Present: S1, S2. Absent: murmur, gallop, rubs - Routine Abdominal Exam Present: soft, normoactive bowel sounds - Routine Extremities Exam Present: full ROM, pulses intact, normal capillary refill. Absent: cyanosis, clubbing, edema - Routine Skin Exam Present: intact - Routine Neurological Exam Present: oriented X3 Results 01/03/18 09:52 01/03/18 09:52 Cardiac Enzymes 01/03/18 Range/Units 09:52 AST 29 (15-37) U/L Troponin I Less than 0.02 L (0.02-0.05) ng/mL Coagulation 01/03/18 01/03/18 Range/Units 13:40 13:40 PT 11.5 (9.8-11.6) sec APTT 23.1 L Cancelled (24.3-30.1) sec CBC 01/03/18 Range/Units 09:52 WBC 7.0 (4.0-11.0) th/mm3 RBC 5.04 (4.00-5.30) mil/mm3 Hgb 14.5 (11.6-15.3) gm/dL Hct 42.3 (35.0-46.0) % Plt Count 274 (150-450) th/mm3 Neut # (Auto) 2.9 (1.8-7.7) th/mm3 Lymph # (Auto) 3.5 (1.0-4.8) th/mm3 [place] # (Auto) 0.5 (0.0-0.9) th/mm3 Eos # (Auto) 0.1 (0.0-0.4) th/mm3 Baso # (Auto) 0.0 (0.0-0.2) th/mm3 Comprehensive Metabolic Panel 01/03/18 Range/Units 09:52 Sodium 140 (136-145) meq/L Potassium 3.8 (3.5-5.1) meq/L Chloride 103 (98-107) meq/L Carbon Dioxide 23.0 (21.0-32.0) meq/L BUN 11 (7-18) mg/dL Creatinine 0.93 (0.50-1.00) mg/dL Calcium 8.7 (8.5-10.1) mg/dL AST 29 (15-37) U/L ALT 57 H (10-53) U/L Alkaline Phosphatase 97 (45-117) U/L Total Protein 8.1 (6.4-8.2) g/dL Albumin 3.8 (3.4-5.0) g/dL Intake and Output 01/03/18 01/03/18 01/03/18 06:59 14:59 22:59 Other: Weight 73.482 kg Weight On Admission 73.482 kg Patient Weight 01/04/18 06:59 Weight 73.482 kg Assessment and Plan - Assessment (1) Unstable angina Code(s): I20.0 - Unstable angina Status: Acute (2) Diabetes Code(s): E11.9 - Type 2 diabetes mellitus without complications Status: Acute (3) Obesity Code(s): E66.9 - Obesity, unspecified Status: Acute - Plan Due to patient's history of hypertension, diabetes and unstable angina will proceed with cardiac catheterization. Obtain consent for cardiac catheterization and possible intervention. Risk factors of cardiac catheterization include but are not limited to allergic reaction, bleeding, bruising, infection, kidney damage, stroke, myocardial infarction and/or possibly . The need for cardiac catheterization and risk factors involved were discussed with patient and family members. Patient and family members verbalized understanding. Continue aggressive cardiac risk factor modification. Will follow during hospitalization. The patient was seen and evaluated by Dr. Rich who participated in care, management and decision making. - Attending Attestation Patient seen and examined. I reviewed and agree with the evaluation and plan as presented. Symptoms consistent with unstable angina in a diabetic patient. Proceed with cath and possible coronary intervention if necessary today.
--- NOTE | 2018-01-03 16:51 | MR ---
cc: Cora Rich MD DATE: 01/03/2018 INDICATION: Unstable angina, class IV angina. PROCEDURE PERFORMED: 1. Retrograde left heart catheterization with left ventriculography and selective coronary angiography. 2. Moderate sedation. ACCESS SITE: Right femoral artery. EQUIPMENT USED: A 5-Turkish pigtail catheter, 5-Turkish JL4 and AR modified coronary catheters. MEDICATIONS: Versed IV, fentanyl IV. CONTRAST: Omnipaque 80 mL COMPLICATIONS: None. BLOOD LOSS: Less than 80 COMPLICATIONS: None. METHOD OF HEMOSTASIS: Vascade closure. RESULTS: A: Hemodynamics: Heart rate 78 beats per minute. Left ventricular end diastolic pressure 15 mmHg. Left ventricle 130/15 aorta 130/85/105. B: Left ventriculography: Left ventricular ejection fraction 55%. Wall motion normal. No mitral regurgitation. C. Selective coronary angiography: Left main coronary artery patent. Left anterior descending coronary artery is patent. D1 patent. Left circumflex artery is patent. OM1 patent. Ramus intermedius patent. Right coronary artery is a relatively small, but dominant vessel, which is patent. PDA patent. PLV patent. DIAGNOSES: 1. Widely patent coronary arteries. 2. Preserved left ventricular systolic function. DISPOSITION: Ms. Schuster can be reassured about her cardiac status. Her study revealed patent coronaries and preserved left ventricular systolic function. I recommend to continue her current medical program including modification of her cardiac risk factors. She can be discharged home later today. Cora Rich MD OQ/ct , 04:00 PM , 04:06 PM [email or web address]
[2018-01-03] MEDS: Acetaminophen 325 MG Tablet PO PRN (17:56)
[2018-01-03] MEDS ORDERED: Dextrose 50% in Water 50 ML Vial IV.PUSH PRN (18:19)
--- NOTE | 2018-01-03 18:25 | ECG ---
Date Performed: 01/03/2018 Time Performed: 09:50:30 PTAGE: 47 years EKG: Sinus rhythm WITH SINUS ARRHYTHMIA NORMAL ECG NO PREVIOUS TRACING DOCTOR: Loren Mendez Interpretating Date/Time 01/03/2018 18:23:41
[2018-01-03 19:07] LABS: Chol/HDL Ratio 9.04 Ratio; HDL Cholesterol 35.6 mg/dL (40.0-60.0)
[2018-01-03 19:12] LABS: Creatine Kinase 61 U/L (26-192)
[2018-01-03 20:12] VITALS: RESP 16
[2018-01-03] MEDS: Insulin NovoLOG Aspart Correctional Sugar Inj SQ SCH (21:29)
[2018-01-03] MEDS: Senna/Docusate Sodium 8.6/50 MG Tablet PO SCH (21:31)
[2018-01-04] MEDS: Sod Chloride 0.9% Inj 1,000 ML IV.CONT SCH ×2 (00:54→06:28)
[2018-01-04 01:49] LABS: Baso # (Auto) 0.1 th/mm3 (0.0-0.2); Baso % (Auto) 0.6 % (0.0-2.0); Eos # (Auto) 0.1 th/mm3 (0.0-0.4); Eos % (Auto) 1.6 % (0.0-4.0); Hematocrit 40.8 % (35.0-46.0); Hemoglobin 13.8 gm/dL (11.6-15.3); Lymph # (Auto) 4.9 th/mm3 (1.0-4.8); Lymph % (Auto) 57.4 % (9.0-44.0); Mean Corpuscular HGB Conc 33.8 % (32.0-36.0); Mean Corpuscular Hemoglobin 28.3 pg (27.0-34.0); Mean Corpuscular Volume 83.7 fL (80.0-100.0); Mean Platelet Volume 6.6 fL (7.0-11.0); Mono # (Auto) 0.6 th/mm3 (0.0-0.9); Mono % (Auto) 6.7 % (0.0-8.0); Neut # (Auto) 2.8 th/mm3 (1.8-7.7); Neut % (Auto) 33.7 % (16.0-70.0); Platelet Count 275 th/mm3 (150-450); Red Blood Count 4.87 mil/mm3 (4.00-5.30); Red Cell Distribution Width 13.3 % (11.6-17.2); White Blood Count 8.5 th/mm3 (4.0-11.0)
[2018-01-04 02:04] LABS: Anion Gap 8 meq/L (5-15); Blood Urea Nitrogen 15 mg/dL (7-18); Calcium 8.7 mg/dL (8.5-10.1); Carbon Dioxide 27.2 meq/L (21.0-32.0); Chloride 106 meq/L (98-107); Glomerular Filtration Rate 84 mL/min (>89); Glucose,Random 166 mg/dL (74-106); Potassium 3.7 meq/L (3.5-5.1); Sodium 141 meq/L (136-145)
[2018-01-04 02:12] LABS: Creatine Kinase 62 U/L (26-192)
[2018-01-04 02:29] LABS: Platelet Estimate Normal (Normal); Platelet Morphology Normal (Normal)
[2018-01-04 03:57] VITALS: O2SAT 97
[2018-01-04] MEDS: Insulin NovoLOG Aspart Correctional Sugar Inj SQ SCH ×2 (05:01→09:55)
[2018-01-04 08:03] VITALS: BP 117/81; TEMP 98.2
[2018-01-04] MEDS: Metoprolol Tartrate 25 MG Tablet PO SCH (08:18)
[2018-01-04] MEDS: Acetaminophen 325 MG Tablet PO PRN (08:18)
[2018-01-04] MEDS: Senna/Docusate Sodium 8.6/50 MG Tablet PO SCH (08:19)
--- NOTE | 2018-01-04 09:40 | P.PNCA ---
Subjective Interval history: Patient denies any cp, pressure, palpitations, dizziness, edema or SOB. Patient states she feels very good. Physical Exam Vital signs: Vital Signs 01/03/18 09:53 01/03/18 10:04 01/03/18 10:13 Temperature 98.2 F Pulse Rate 99 H 88 Respiratory Rate 20 20 Blood Pressure 173/89 H 172/93 H Pulse Oximetry 98 97 97 01/03/18 10:22 01/03/18 11:47 01/03/18 12:48 Temperature 98.2 F Pulse Rate 80 74 Respiratory Rate 18 16 Blood Pressure 153/73 H 124/77 Pulse Oximetry 97 97 97 01/03/18 16:29 01/03/18 17:00 01/03/18 19:00 Temperature 98.0 F Pulse Rate 72 82 Respiratory Rate 18 Blood Pressure 128/72 Pulse Oximetry 97 97 01/03/18 20:00 01/03/18 21:00 01/03/18 22:00 Temperature 98.1 F Pulse Rate 78 76 74 Respiratory Rate 16 Blood Pressure 130/88 Pulse Oximetry 97 01/03/18 23:00 01/03/18 23:05 01/04/18 00:00 Temperature 97.7 F Pulse Rate 75 80 Respiratory Rate 16 Blood Pressure 110/74 Pulse Oximetry 95 98 01/04/18 01:00 01/04/18 02:00 01/04/18 03:00 Temperature 97.1 F L Pulse Rate 78 70 75 Respiratory Rate 16 Blood Pressure 123/79 Pulse Oximetry 97 01/04/18 04:00 01/04/18 05:00 01/04/18 06:00 Temperature Pulse Rate 80 78 70 Respiratory Rate Blood Pressure Pulse Oximetry 01/04/18 07:00 01/04/18 08:00 01/04/18 09:00 Temperature 98.2 F Pulse Rate 80 82 84 Respiratory Rate Blood Pressure 117/81 Pulse Oximetry 97 01/04/18 09:29 Temperature Pulse Rate 70 Respiratory Rate Blood Pressure Pulse Oximetry Intake & Output 01/03/18 01/04/18 01/04/18 18:59 06:59 18:59 Intake Total 120 / 120 1240 / 1240 Balance 120 / 120 1240 / 1240 Weight 73.482 kg 72.9 kg Intake: IV 1000 / 1000 NS Inj 1,000 ML @ 115 mls/hr IV 1000 / 1000 .CONT .Q8H42M [facility] Rx#:[id number] Oral 120 / 120 240 / 240 Other: # Voids 3 Date of Last Bowel Movement 01/02/18 01/02/18 Weight On Admission 73.482 kg - Constitutional no acute distress - Routine HEENT Exam Head: Present: normocephalic Eye: Present: PERRL ENT: Present: mucous membranes moist - Routine Neck Exam Present: full ROM - Routine Respiratory Exam Present: CTA bilaterally - Routine Cardiovascular Exam Present: S1, S2. Absent: murmur, gallop, rubs, S3, S4 - Routine Abdominal Exam Present: normoactive bowel sounds - Routine Extremities Exam Present: full ROM, pulses intact, normal capillary refill. Absent: cyanosis, clubbing, edema - Routine Skin Exam Present: intact - Routine Neurological Exam Present: oriented X3 - Detailed Neurological Exam: Coma Scale Eye Opening: Spontaneous Verbal Response: Oriented Motor Response: Obey commands Oscar Coma Scale Total: 15 - Routine Psychiatric Exam Present: normal affect - Additional findings Additional findings: Right groin site, D&I without signs of bleeding. Good pulses bilateral lower extremities. Assessment and Plan - Assessment (1) Unstable angina Code(s): I20.0 - Unstable angina Status: Acute (2) Diabetes Code(s): E11.9 - Type 2 diabetes mellitus without complications Status: Acute (3) Obesity Code(s): E66.9 - Obesity, unspecified Status: Acute - Plan Cardiac cath yesterday 01/03/18 no CAD noted. Educated patient on the importance of risk factor modification and lifestyle changes. Ok to discharge home from cardiac standpoint. The patient was seen and evaluated by Dr. Rich who participated in care, management and decision making. - Attending Attestation Patient seen and examined. I reviewed and agree with the evaluation and plan as presented. Cath with patent cors. DC home. Will schedule outpatient f/u.
[2018-01-04 10:32] VITALS: PULSE 60
--- NOTE | 2018-01-04 12:02 | P.PN ---
Addendum entered and electronically signed by Sacha Haskins 01/05/18 10:25: Edit to the assessment and plan: The patient will not be watched overnight. Her chest pain has resolved and her studies were negative. We discussed a clear plan for her to follow up with her PCP and a assistant head cashier. She was discharged to home. Original Note: Subjective Interval history: The patient was seen this morning on rounds. She was sitting upright in the chair and requesting to go home multiple times. She says that she feels great and is no longer having any chest pain. She also denies any SOB. Physical Exam Vital signs: Vital Signs 01/03/18 12:48 01/03/18 16:29 01/03/18 17:00 Temperature 98.2 F 98.0 F Pulse Rate 74 72 Respiratory Rate 16 18 Blood Pressure 124/77 128/72 Pulse Oximetry 97 97 97 01/03/18 19:00 01/03/18 20:00 01/03/18 21:00 Temperature 98.1 F Pulse Rate 82 78 76 Respiratory Rate 16 Blood Pressure 130/88 Pulse Oximetry 97 01/03/18 22:00 01/03/18 23:00 01/03/18 23:05 Temperature 97.7 F Pulse Rate 74 75 Respiratory Rate 16 Blood Pressure 110/74 Pulse Oximetry 95 98 01/04/18 00:00 01/04/18 01:00 01/04/18 02:00 Temperature Pulse Rate 80 78 70 Respiratory Rate Blood Pressure Pulse Oximetry 01/04/18 03:00 01/04/18 04:00 01/04/18 05:00 Temperature 97.1 F L Pulse Rate 75 80 78 Respiratory Rate 16 Blood Pressure 123/79 Pulse Oximetry 97 01/04/18 06:00 01/04/18 07:00 01/04/18 08:00 Temperature 98.2 F Pulse Rate 70 80 82 Respiratory Rate Blood Pressure 117/81 Pulse Oximetry 97 01/04/18 09:00 01/04/18 09:29 01/04/18 10:00 Temperature Pulse Rate 84 70 60 Respiratory Rate Blood Pressure Pulse Oximetry Intake & Output 01/03/18 01/04/18 01/04/18 18:59 06:59 18:59 Intake Total 120 / 120 1240 / 1240 Balance 120 / 120 1240 / 1240 Weight 73.482 kg 72.9 kg Intake: IV 1000 / 1000 NS Inj 1,000 ML @ 115 mls/hr IV 1000 / 1000 .CONT .[id number] [facility] Rx#:[id number] Oral 120 / 120 240 / 240 Other: # Voids 3 Date of Last Bowel Movement 01/02/18 01/02/18 Weight On Admission 73.482 kg Narrative: GENERAL: WDWN female sitting upright in the chair SKIN: Warm and dry. No lesion or rash. HEAD: Normocephalic. Atraumatic. EYES: No scleral icterus. No injection or drainage. NECK: Supple, trachea midline. No JVD or lymphadenopathy. CARDIOVASCULAR: Regular rate and rhythm without murmurs, gallops, or rubs. Peripheral pulses intact. RESPIRATORY: Breath sounds equal bilaterally. No accessory muscle use. GASTROINTESTINAL: Abdomen soft, non-tender, nondistended. +BS. MUSCULOSKELETAL: No cyanosis, or edema. Moves all extremities spontaneously. BACK: Nontender without obvious deformity. No CVA tenderness. Results - Labs CBC & Chem 7: 01/04/18 01:18 01/04/18 01:18 Laboratory Results - last 24 hr 01/03/18 01/03/18 01/03/18 13:40 13:40 18:03 WBC RBC Hgb Hct MCV MCH MCHC RDW Plt Count MPV Prelim Diff (Auto) Neut % (Auto) Lymph % (Auto) [place] % (Auto) Eos % (Auto) Baso % (Auto) Neut # (Auto) Lymph # (Auto) [place] # (Auto) Eos # (Auto) Baso # (Auto) WBC Differential Diff Scan Differential Comment Platelet Estimate Platelet Morphology PT 11.5 INR 1.1 APTT 23.1 L Cancelled D-Dimer Quant (PE/DVT) Sodium Potassium Chloride Carbon Dioxide Anion Gap BUN Creatinine Estimated GFR POC Glucose 186 H Random Glucose Calcium Total Creatine Kinase Troponin I Triglycerides Cholesterol LDL Cholesterol, Calc HDL Cholesterol Cholesterol/HDL Ratio 01/03/18 01/03/18 01/03/18 18:42 18:42 18:42 WBC RBC Hgb Hct MCV MCH MCHC RDW Plt Count MPV Prelim Diff (Auto) Neut % (Auto) Lymph % (Auto) [place] % (Auto) Eos % (Auto) Baso % (Auto) Neut # (Auto) Lymph # (Auto) [place] # (Auto) Eos # (Auto) Baso # (Auto) WBC Differential Diff Scan Differential Comment Platelet Estimate Platelet Morphology PT INR APTT D-Dimer Quant (PE/DVT) 0.27 Sodium Potassium Chloride Carbon Dioxide Anion Gap BUN Creatinine Estimated GFR POC Glucose Random Glucose Calcium Total Creatine Kinase 61 Troponin I Less than 0.02 L Triglycerides 742 H Cholesterol 322 H LDL Cholesterol, Calc HDL Cholesterol 35.6 L Cholesterol/HDL Ratio 9.04 01/03/18 01/04/18 01/04/18 21:28 01:18 01:18 WBC 8.5 RBC 4.87 Hgb 13.8 Hct 40.8 MCV 83.7 MCH 28.3 MCHC 33.8 RDW 13.3 Plt Count 275 MPV 6.6 L Prelim Diff (Auto) Slide review pending Neut % (Auto) 33.7 Lymph % (Auto) 57.4 H [place] % (Auto) 6.7 Eos % (Auto) 1.6 Baso % (Auto) 0.6 Neut # (Auto) 2.8 Lymph # (Auto) 4.9 H [place] # (Auto) 0.6 Eos # (Auto) 0.1 Baso # (Auto) 0.1 WBC Differential . Diff Scan Auto diff confirmed Differential Comment . Platelet Estimate Normal Platelet Morphology Normal PT INR APTT D-Dimer Quant (PE/DVT) Sodium 141 Potassium 3.7 Chloride 106 Carbon Dioxide 27.2 Anion Gap 8 BUN 15 Creatinine 0.74 Estimated GFR 84 L POC Glucose 114 H Random Glucose 166 H Calcium 8.7 Total Creatine Kinase 62 Troponin I Less than 0.02 L Triglycerides Cholesterol LDL Cholesterol, Calc HDL Cholesterol Cholesterol/HDL Ratio 01/04/18 01/04/18 04:57 07:52 WBC RBC Hgb Hct MCV MCH MCHC RDW Plt Count MPV Prelim Diff (Auto) Neut % (Auto) Lymph % (Auto) [place] % (Auto) Eos % (Auto) Baso % (Auto) Neut # (Auto) Lymph # (Auto) [place] # (Auto) Eos # (Auto) Baso # (Auto) WBC Differential Diff Scan Differential Comment Platelet Estimate Platelet Morphology PT INR APTT D-Dimer Quant (PE/DVT) Sodium Potassium Chloride Carbon Dioxide Anion Gap BUN Creatinine Estimated GFR POC Glucose 162 H 133 H Random Glucose Calcium Total Creatine Kinase Troponin I Triglycerides Cholesterol LDL Cholesterol, Calc HDL Cholesterol Cholesterol/HDL Ratio Assessment and Plan - Plan 47 YO female with PMHx hypothyroid and DM presents with atypical chest pain and EKG showing NSR and Troponin 0.02, will trend and r/o ACS. Pt taken to cath lab tech by Dr Rich with no lesion noted in coronary arteries. Pt will be kept in observation overnight due to continued CP. 1. Atypical chest pain (resolved) -cleared by cardiology and had a negative cath lab tech study -chest pain has resolved -we recommended daily baby aspirin and to follow up with her assistant head cashier in the next 7-10 days 2.DM -she may restart her home medications after discharge -we recommended diet and lifestyle modifications to assist with keeping her DM controlled. 3. Hypothyroid -Continue home dose levothyroxine 25 mcg PO daily 4. Hypercholesterolemia -Her total cholesterol was 322 and LDL was unmeasurable -She is not on any statin therapy at home -we discussed lifestyle changes such as low fat diet, low sodium diet, increased fruits and vegetable, and less red meat. -We also recommended an increase in exercise -we will start her on Atorvastatin POHS 80mg to bring her cholesterol down and to follow up with PCP regarding future management 5. Hypertriglyceridemia -We did not start medication due to contraindications to being on fibrates and statins at the same time. -we did recommend an omega 3 supplement which the patient already takes -we recommended diet and exercise changes to assist with the triglycerides as well 4. FEN/GI/PPx: -NPO for procedure; heart healthy diet after -Electrolytes wnl -MIVF at 115 mls/hr -GI: none indicated -PPx: Heparin as above -Tylenol 650 mg PRN -Zofran 4 mg IV for nausea - Attending Attestation The exam, history, and the medical decision-making described in the above note were completed with the assistance of the resident physician. I reviewed and agree with the findings presented. I attest that I had a [id number] encounter with the patient on the same day, and personally performed and documented my assessment and findings in the medical record. Evaluated patient with the resident/medical student team on 01/04/18. Patient presented with chest pain, had negative angiogram/clear coronary arteries. Some reassurance provided, but stressed to her that a clear angiogram does not mean there is absolutely no cardiac disease. She has significantly abnormal lipid profile, including elevated triglycerides. Stressed to her the importance of addressing this both with a high dose statin as well as with a healthy diet and exercise/weight loss, especially substituting low for high glycemic carbs. Stressed importance of good control of diabetes, and close follow up with her doctors as an outpatient. Also will continue her on aspirin and beta josh. Discussed conditions under which she should seek immediate care or return to the hospital.
--- NOTE | 2018-01-04 21:09 | ECG ---
Date Performed: 01/03/2018 Time Performed: 22:23:54 PTAGE: 47 years EKG: Sinus rhythm Normal ECG PREVIOUS TRACING : 01/03/2018 09.50 Since the previous tracing, no significant change noted DOCTOR: Cora Rich Interpretating Date/Time 01/04/2018 21:08:52
== END 2018-01-04 11:58 | disposition home or self-care (01) ==
LOC: NEDA 09:40 → NEPE 09:40 → NEDA 12:36 → NEPGCP 12:42 → HCIS 14:58
PROVIDERS: ADMIT Family Medicine; ATTEND Family Medicine